=== PATIENT | female | born 1990 | race Caucasian/White ===

== ENCOUNTER 2022-12-07 09:20 | Emergency (ER) | payer MEDICAID, OTHER ==
[~2022-12-07] VITALS: Ht 170.2 cm; Wt 113.6 kg
[~2022-12-07 09:20] MED LIST: CARB100 PO; CARB100O PO; SERT-162 PO
[2022-12-07 09:21] VITALS: TEMP 98.4
[2022-12-07] MEDS ORDERED: CEPHALEXIN MONOHYDRATE 500 MG CAPSULE PO ONE (10:00)
[2022-12-07] MEDS ORDERED: SULFAMETHOX/TRIMETH DS 800-160 MG/TABLET PO ONE (10:00)
[2022-12-07] MEDS ORDERED: LIDOCAINE 1% 10 ML VIAL SQ ONE (10:00)
[2022-12-07] MEDS ORDERED: HYDROCODONE/ACETAMINOPHEN 5-325 MG TABLET PO ONE (10:00)
[2022-12-07] MEDS ORDERED: BACTDSB PO (14:08)
[2022-12-07] MEDS ORDERED: CEPH-558 PO (14:09)
[2022-12-07 14:15] VITALS: BP 144/78; PULSE 92; RESP 18
== END 2022-12-07 14:29 | disposition home or self-care (01) ==
LOC: EMS 09:22
DX: L02.811 Cutaneous abscess of head [any part, except face] (principal); G43.909 Migraine, unspecified, not intractable, without status migrainosus; Z90.49 Acquired absence of other specified parts of digestive tract; Z87.891 Personal history of nicotine dependence
CPT/HCPCS: 99284; 10060; J3490